=== PATIENT | female | born 1975 | race Caucasian/White ===

== ENCOUNTER 2022-01-02 16:23 | Outpatient (CLI) | payer OTHER, SELFPAY ==
--- NOTE | 2022-01-02 | COLBX_PTH ---
PATIENT: FUNMI CLEMENTS LOC: [facility] U#:[id number] AGE/SX: 46/F ROOM: RE01/02/[address]: Dr. Neisha Virk MD : 1975 BED: DIS: 01/02/2022 SPEC #: [id number] RECD: 01/02/22 15:02 STATUS: SAURABH LIAlix #: [id number] NGHIA: 01/02/22 00:[address]: Neisha Virk DEPT: SURGICAL PATHOLOGY RECD BY: Ananth Clancy Tissues: Rectum, NOS Procedures: Surgery Specimen Level IV HEADER OPERATION: Colonoscopy PRE-OP DIAGNOSIS: Screening TISSUE SUBMITTED: Rectal polyp MICROSCOPIC DIAGNOSIS Rectal polyp, biopsy: A polypoid fragment of colonic mucosa, no pathologic diagnosis. IMER:lorrie 01/06/2022 MICROSCOPIC DESCRIPTION Slides are reviewed. GROSS DESCRIPTION Received in fixative is one container labeled with the patient's name and designated rectal polyp. The specimen consists of a rondon-pink polyp measuring 0.4 x 0.4 x 0.2 cm. The specimen is totally submitted in one cassette. / SJ:rg 01/05/2022 TC:5 CPT: 01391
== END 2022-01-02 23:59 | disposition home or self-care (01) ==
LOC: LABSPEC 16:27
PROVIDERS: Visit Provider Surgery
DX: Z12.11 Encounter for screening for malignant neoplasm of colon (principal); K62.1 Rectal polyp
CPT/HCPCS: 88305

== ENCOUNTER → 2025-09-12 | Outpatient (CLI) | payer OTHER, SELFPAY ==
[2025-09-12 18:34] LABS: Barbiturate Urine NEGATIVE (< 200 ng/mL); Benzodiazepine Urine NEGATIVE (< 200 ng/mL); PCP Urine NEGATIVE (< 25 ng/mL); THC Urine NEGATIVE (< 50 ng/mL)
== END | disposition home or self-care (01) ==
PROVIDERS: PCP Nurse Practitioner Family; Visit Provider Nurse Practitioner Family
DX: F90.9 Attention-deficit hyperactivity disorder, unspecified type (principal)
CPT/HCPCS: 80307